=== PATIENT | male | born 1995 | race American Indian/Alaskan Native ===

== ENCOUNTER 2017-02-22 16:00 | Emergency (ER) | payer SELFPAY ==
[2017-02-22 17:50] VITALS: BP 146/72
--- NOTE | 2017-02-22 18:36 | Emergency Department Report ---
ED Extremity Problem HPI - General Chief complaint: Extremity Injury, Lower Stated complaint: RT FOOT INJURY Time Seen by Provider: 02/22/17 18:27 Source: patient Mode of arrival: Ambulatory Limitations: No Limitations - History of Present Illness Initial comments: PT states 1 week ago, he was working barefooted and on wooden platform. PT states he got splinter in the bottom on his R foot. PT states a coworker used tweezers to remove splinter. PT states he noted swelling to the site 2 days ago. PT states today, his coworker noticed more fb in his foot. PT states his foot only hurts when he runs on it. PT states his TD vaccine is UTD Complaint: extremity swelling -: Gradual, days(s) Location: right, lower extremity, other (foot) Severity scale (0 -10): 0 Consistency: intermittent (only hurts if running on it. ) Improves with: nothing Worsens with: weight bearing, walking Associated Symptoms: denies other symptoms - Related Data Previous Rx's Medication Instructions Recorded Last Taken Type Cephalexin [Keflex] 500 mg PO Q6HR #40 capsule 02/22/17 Unknown Rx Ibuprofen [Motrin] 600 mg PO Q8H PRN #15 tablet 02/22/17 Unknown Rx Sulfamethoxazole/Trimethoprim 1 each PO BID #20 tablet 02/22/17 Unknown Rx [Bactrim DS TAB] Allergies Allergy/AdvReac Type Severity Reaction Status Date / Time No Known Allergies Allergy Unverified 03/25/14 15:04 ED Review of Systems ROS: Stated complaint: RT FOOT INJURY Other details as noted in HPI Comment: All other systems reviewed and negative Constitutional: denies: chills, fever, malaise Gastrointestinal: denies: nausea, vomiting Musculoskeletal: as per HPI Skin: as per HPI ED Past Medical Hx - Past Medical History Previous Medical History?: No - Surgical History Past Surgical History?: No - Social History Smoking Status: Never Smoker Substance Use Type: Marijuana - Medications Home Medications: Home Medications Medication Instructions Recorded Confirmed Last Taken Type Cephalexin [Keflex] 500 mg PO Q6HR #40 capsule 02/22/17 Unknown Rx Ibuprofen [Motrin] 600 mg PO Q8H PRN #15 tablet 02/22/17 Unknown Rx Sulfamethoxazole/Trimethoprim 1 each PO BID #20 tablet 02/22/17 Unknown Rx [Bactrim DS TAB] ED Physical Exam - General Limitations: No Limitations General appearance: alert, in no apparent distress - Head Head exam: Present: atraumatic, normocephalic, normal inspection - Eye Eye exam: Present: normal appearance. Absent: conjunctival injection - ENT ENT exam: Present: normal exam, normal external ear exam - Neck Neck exam: Present: normal inspection, full ROM - Respiratory Respiratory exam: Absent: respiratory distress, accessory muscle use - Cardiovascular Cardiovascular Exam: Present: regular rate, normal rhythm - Extremities Exam Extremities exam: Present: full ROM. Absent: tenderness, calf tenderness - Expanded Lower Extremity Exam Right Knee exam: Present: normal inspection, full ROM Lower Leg exam: Present: normal inspection. Absent: tenderness, swelling Ankle exam: Present: normal inspection. Absent: tenderness, swelling Foot/Toe exam: Present: full ROM, swelling (pt the plantar aspect ), puncture wound (to the plantar aspect, fb visualized ). Absent: tenderness, ecchymosis, erythema, calcaneal tenderness Neuro vascular tendon exam: Absent: no vascular compromise Gait: Positive: observed and normal - Back Exam Back exam: Present: normal inspection, full ROM - Neurological Exam Neurological exam: Present: alert, oriented X3, normal gait - Psychiatric Psychiatric exam: Present: normal affect, normal mood - Skin Skin exam: Present: warm, dry, normal color ED Course Vital Signs 02/22/17 17:46 Temperature 98.3 F Pulse Rate 72 Respiratory 18 Rate Blood Pressure 146/72 O2 Sat by Pulse 100 Oximetry - Reevaluation(s) Reevaluation #1: 02/22/17 18:36 pt aware of plan of care. Reevaluation #2: 02/22/17 19:18 PT aware of xr result and plan of care. PT has no questions at this time. - Procedure Description Procedures done: R plantar foot cleansed with betadine. #26 gauge needle used to back out visualized debris from foot. pt tolerated the procedure well. PT Aware there could still be residual fb. that is unseen. no fb palpable - Pulse Oximetry Interpretation Digit-Finger Initial Pulse Oximetry Readin Actions Taken: none ED Medical Decision Making - Radiology Data Radiology results: report reviewed XR R foot - no radiopaque fb seen - Differential Diagnosis fb, cellulitis, puncture wound Critical Care Time: No Critical care attestation.: If time is entered above; I have spent that time in minutes in the direct care of this critically ill patient, excluding procedure time. ED Disposition Clinical Impression: Puncture wound of foot with foreign body Qualifiers: Encounter type: initial encounter Laterality: right Qualified Code(s): S91.341A - Puncture wound with foreign body, right foot, initial encounter Disposition: TO HOME OR SELFCARE Is pt being admited?: No Does the pt Need Aspirin: No Condition: Stable Instructions: Soft Tissue Foreign Body (ED), Puncture Wound (ED) Additional Instructions: soak your R foot in warm water at least 4 times a day Return to ED in 2 days for recheck Return sooner if redness, drainage, fevers, chills or increase in pain Prescriptions: Cephalexin [Keflex] 500 mg PO Q6HR #40 capsule Ibuprofen [Motrin] 600 mg PO Q8H PRN #15 tablet PRN Reason: Pain Sulfamethoxazole/Trimethoprim [Bactrim DS TAB] 1 each PO BID #20 tablet Referrals: PRIMARY MD MISHA [Primary Care Provider] - 3-5 Days PAOLA ASTORGA MD [Staff Physician] - 3-5 Days TOÑO CHAUDHRY MD [Staff Physician] - 3-5 Days Forms: Work/School Release Form(ED) Time of Disposition: 19:25
--- NOTE | 2017-02-22 18:58 | XRay Report ---
FINAL REPORT EXAM: XR FOOT 3 RT HISTORY: pain and swelling after splinter TECHNIQUE: Right foot three views 3 images PRIORS: None. FINDINGS: Bone mineralization appears within normal limits. No acute fracture or subluxation is identified. No gross abnormality is seen in the soft tissues. No radiodense foreign body is identified. IMPRESSION: 1. No acute osseous abnormality is identified. 2. No radiodense foreign body is identified. Note: Wooden splinter may not be radiographically apparent.
== END 2017-02-22 19:40 | disposition home or self-care (01) ==
LOC: ED 16:00
DX: S91.341A Puncture wound with foreign body, right foot, initial encounter (principal); F12.90 Cannabis use, unspecified, uncomplicated; W45.8XXA Other foreign body or object entering through skin, initial encounter; Y93.89 Activity, other specified; Y99.9 Unspecified external cause status; Y92.89 Other specified places as the place of occurrence of the external cause